=== PATIENT | female | born 1960 | race African-American/Black ===

== ENCOUNTER 2019-09-17 22:05 | Observation (INO) ==
[2019-09-17] MEDS ORDERED: NITROGLYCERIN 2% OINT 1 INCH/GM PACK TOP STA (22:41)
[2019-09-17] MEDS ORDERED: METOCLOPRAMIDE 10 MG/2 ML VIAL IV STA (22:41)
[2019-09-17] MEDS ORDERED: PANTOPRAZOLE 40 MG VIAL IV STA (22:41)
[2019-09-17] MEDS ORDERED: hydrALAZINE 20 MG/1 ML VIAL IV STA (22:41)
[2019-09-17] MEDS ORDERED: METOPROLOL TARTRATE 5 MG/5 ML VIAL IV STA (22:41)
[2019-09-17] MEDS ORDERED: ONDANSETRON 4 MG/2 ML VIAL IV STA (22:41)
[2019-09-17] MEDS ORDERED: ASPIRIN 325 MG TABLET PO STA (22:41)
[2019-09-17 23:47] LABS: Basophils # 0.1 10*3/uL (0.0-0.2); Basophils % 0.6 % (0.0-0.8); Eosinophils # 0.2 10*3/uL (0.0-0.87); Eosinophils % 1.8 % (0.00-10.9); Hematocrit 41.4 VOL% (35.7-47.0); Hemoglobin 12.6 GM/DL (12.0-16.0); Immature Granulocytes % 0.3 %; Immature Granulocytes Absolute 0.03 #; Lymphocytes # 5.2 10*3/uL (1.4-4.0); Lymphocytes % 47.5 % (21.3-54.2); Mean Corpuscular HGB Conc 30.4 GM/DL (32-36); Mean Corpuscular Volume 84.1 FL (87-102); Mean Platelet Volume 13.7 FL (9.6-12.0); Neutrophils % 44.8 % (38.7-73.9); Platelet Count 241 T/CUMM (130-400); Red Blood Count 4.92 MC/CUMM (3.8-5.5); Red Cell Distribution Width 13.4 % (9.3-17.3); White Blood Count 10.9 T/CUMM (4-12)
[2019-09-17 23:53] LABS: PT Patient Result 10.3 SECS (9.8-11.9); Partial Thromboplastin Time 26.4 SECS (23.9-33.8)
[2019-09-17 23:55] LABS: Alanine Aminotransferase 27 U/L (13-56); Albumin 4.2 G/DL (3.4-5.0); Alkaline Phosphatase 108 U/L (45-117); Aspartate Amino Transferase 21 U/L (0-37); Bilirubin,Total < 0.39 MG/DL (0.2-1.0); Blood Urea Nitrogen 9 MG/DL (7-18); Calcium 9.8 MG/DL (8.5-10.1); Estimated Glom Filtration Rate 60 ML/MIN; Glucose 178 MG/DL (74-106); Osmolality,Calculated 275.8 MOS/KG (273-304); Total Protein 8.4 G/DL (6.4-8.3)
[2019-09-18] MEDS ORDERED: hydrALAZINE 20 MG/1 ML VIAL IV STA (01:18)
[2019-09-18] MEDS ORDERED: ONDANSETRON 4 MG/2 ML VIAL IV PRN (02:30)
[2019-09-18] MEDS ORDERED: diphenhydrAMINE CAP 25 MG CAPSULE PO PRN (02:30)
[2019-09-18] MEDS ORDERED: DEXTROSE 50% 25 GM/50 ML VIAL IV PRN ×2 (02:30→10:44)
[2019-09-18] MEDS ORDERED: GLUCAGON 1 MG VIAL IM PRN ×2 (02:30→10:44)
[2019-09-18] MEDS ORDERED: ACETAMINOPHEN 325 MG TABLET PO PRN (02:30)
[2019-09-18] MEDS ORDERED: guaiFENesin/DM ER 600-30 MG TABLET PO PRN (02:30)
[2019-09-18] MEDS ORDERED: ALUMINUM/MAGNES/SIMETH MAX STR 30 ML UDCUP PO PRN (02:30)
[2019-09-18] MEDS ORDERED: NICOTINE 21 MG/24 HR PATCH TRANSDERM PRN (02:30)
[2019-09-18 04:41] LABS: Risk Ratio 4.18
[2019-09-18] MEDS: hydrALAZINE 20 MG/1 ML VIAL IV PRN ×2 (06:00→13:19)
[2019-09-18 06:12] LABS: Amorphous Crystals,Urine Occasional /HPF (Few); Apearance,Urine CLEAR (Clear); Bacteria,Urine Occasional /HPF (Few); Bilirubin,Urine Negative (Negative); Blood, Urine Negative (Negative); Glucose,Urine (UA) 50 mg/dL (Negative); Ketones,Urine Negative (Negative); Mucus,Urine Occasional /LPF (Occasional); Nitrite,Urine Negative (Negative); Protein,Urine Negative; RBC,Urine 1 /HPF (0-4); Squamous Epithelial Cell,Urine Occasional /HPF (0-10); Urine Color Yellow (Yellow); Urine Specific Gravity 1.008 (1.001-1.035); Urine Urobilinogen < 2.0 EU/DL (0.2-1.0); WBC,Urine 2 /HPF (0-6)
[2019-09-18 06:25] LABS: Barbiturates Screen,Urine Negative (Negative); Benzodiazepines Screen,Urine Negative (Negative); Cannabinoid Screen,Urine Negative (Negative); Opiate Screen,Urine Negative (Negative); Phencyclidine Screen,Urine Negative (Negative)
[2019-09-18] MEDS ORDERED: carvediloL 3.125 MG TABLET PO STA (10:40)
[2019-09-18] MEDS: amLODIPine 10 MG TABLET PO SCH (11:38)
[2019-09-18] MEDS: ENOXAPARIN 40 MG/0.4 ML SYRINGE SUBCUT SCH (11:40)
[2019-09-18] MEDS: PANTOPRAZOLE 20 MG TABLET PO SCH (13:32)
[2019-09-18] MEDS: INSULIN REGULAR 100 UNIT/ML SUBCUT SCH ×3 (13:33→20:26)
[2019-09-18] MEDS: COENZYME Q10 100 MG CAPSULE PO SCH (13:33)
[2019-09-18] MEDS ORDERED: ATORVASTATIN 40 MG TABLET PO SCH (21:00)
[2019-09-18] MEDS ORDERED: carvediloL 6.25 MG TABLET PO SCH (21:00)
[2019-09-19 06:10] LABS: Albumin 3.3 G/DL (3.4-5.0); Bilirubin,Total 0.8 MG/DL (0.2-1.0); Calcium 9.9 MG/DL (8.5-10.1); Osmolality,Calculated 274.8 MOS/KG (273-304); Total Protein 7.4 G/DL (6.4-8.3)
[2019-09-19 06:13] LABS: Basophils # 0.1 10*3/uL (0.0-0.2); Basophils % 0.6 % (0.0-0.8); Eosinophils # 0.2 10*3/uL (0.0-0.87); Eosinophils % 1.7 % (0.00-10.9); Hematocrit 39.4 VOL% (35.7-47.0); Hemoglobin 12.1 GM/DL (12.0-16.0); Immature Granulocytes % 0.2 %; Immature Granulocytes Absolute 0.02 #; Lymphocytes # 3.9 10*3/uL (1.4-4.0); Lymphocytes % 43.7 % (21.3-54.2); Mean Corpuscular HGB Conc 30.7 GM/DL (32-36); Mean Corpuscular Volume 82.9 FL (87-102); Monocytes % 6.9 % (1.7-12.7); Neutrophils % 46.9 % (38.7-73.9); Platelet Count 241 T/CUMM (130-400); Red Blood Count 4.75 MC/CUMM (3.8-5.5); Red Cell Distribution Width 13.7 % (9.3-17.3); White Blood Count 8.9 T/CUMM (4-12)
[2019-09-19 06:30] LABS: Hypochromasia 2+; Microcytosis Slight; Platelet Estimate Adequate
[2019-09-19] MEDS ORDERED: metFORMIN 500 MG TABLET PO SCH (08:00)
[2019-09-19 08:25] VITALS: BP 212/90
[2019-09-19] MEDS: amLODIPine 10 MG TABLET PO SCH (08:25)
[2019-09-19] MEDS: COENZYME Q10 100 MG CAPSULE PO SCH (08:25)
[2019-09-19] MEDS: PANTOPRAZOLE 20 MG TABLET PO SCH (08:25)
[2019-09-19] MEDS: ENOXAPARIN 40 MG/0.4 ML SYRINGE SUBCUT SCH (08:50)
[2019-09-19] MEDS ORDERED: ASPIRIN EC 81 MG TABLET PO SCH (09:00)
[2019-09-19] MEDS ORDERED: carvediloL 25 MG TABLET PO SCH (09:00)
[2019-09-19] MEDS: INSULIN REGULAR 100 UNIT/ML SUBCUT SCH (09:17)
== END 2019-09-19 11:17 | disposition home or self-care (01) ==
LOC: N.ED 22:05 → N.EDINP 22:05 → SUATTDRO 09-18 02:30 → N.EDINP 09-18 12:25 → N.TELEN 09-18 12:31
PROVIDERS: ADMIT Internal Medicine; ATTEND Internal Medicine